=== PATIENT | female | born 1975 | race Two or more races ===

== ENCOUNTER 2024-05-03 03:13 | Emergency (ER) | payer MEDICAID, SELFPAY ==
[2024-05-03 03:37] VITALS: BP 143/85; PULSE 78; RESP 18; TEMP 36.9; O2SAT 100
[2024-05-03] MEDS: ONDANSETRON ODT 4 MG TABRAP PO (03:58)
--- NOTE | 2024-05-03 04:02 | EDNOTE_ITS ---
Nausea/Vomit./Diarrhea-RME/HPI General Chief complaint: General Adult/Misc Complain Stated complaint: NAUSEA,BODYACHES,CONGESTION Time Seen by Provider: 05/03/24 03:50 Arrival date/time: 05/03/24 03:13 48F with history of HTN, DM, and psych disorder presents to ED with several days of nasal congestion, body aches, and N/V that started after she took the ABX prescribed to her for her diverticulitis diagnosed here several days ago. Patient already swabbed herself for COVID and flu at home. Limitations: no limitations Related Data Home Medications ?Medication ?Instructions ?Recorded ?Confirmed quetiapine 50 mg tablet 50 mg PO HS 02/14/21 04/18/22 atorvastatin 10 mg tablet 10 mg PO QDAY 10/06/21 04/18/22 metformin 500 mg tablet 500 mg PO QDAY 10/06/21 04/18/22 atorvastatin 20 mg tablet 20 mg HS 06/21/23 06/21/23 bupropion HCl 150 mg 24 hr tablet, 150 mg PO DAILY 06/21/23 06/21/23 extended release hydroxyzine HCl 25 mg tablet 25 mg BID 06/21/23 06/21/23 lisinopril 10 mg tablet 10 mg DAILY 06/21/23 06/21/23 metformin 1,000 mg tablet 1,000 mg BID 06/21/23 06/21/23 norethindrone 1.5 mg-ethinyl 1 tab DAILY 06/21/23 06/21/23 estradiol 30 mcg(21)/iron 75 mg(7) tablet (Junel FE 1.5/30 (28)) paroxetine HCl 40 mg tablet 40 mg PO HS 06/21/23 06/21/23 quetiapine 50 mg tablet 50 mg HS 06/21/23 06/21/23 Previous Rx's ?Medication ?Instructions ?Recorded nirmatrelvir 300 mg (150 mg See Rx Instructions PO .COMPLEX 07/22/22 x2)-ritonavir 100 mg tablet,dose #30 tabs pack (Paxlovid) hydrocodone 5 mg-acetaminophen 325 1 tab PO Q8H PRN pain #7 tabs 06/21/23 mg tablet ciprofloxacin HCl 500 mg tablet 500 mg PO BID #20 tabs 01/25/24 (Cipro) ciprofloxacin HCl 500 mg tablet 500 mg PO Q12H #20 tabs 04/28/24 metronidazole 500 mg tablet 500 mg PO TID 10 days #30 tabs 04/28/24 ciprofloxacin HCl 500 mg tablet 500 mg PO BID #20 tabs 04/29/24 (Cipro) metronidazole 500 mg tablet 500 mg PO TID 10 days #30 tabs 04/29/24 ondansetron 4 mg disintegrating 4 mg PO Q8H PRN nausea and 05/03/24 tablet vomiting #30 tabs Allergies Allergy/AdvReac Type Severity Reaction Status Date / Time No Known Allergies Allergy Verified 04/28/24 02:03 Review of Systems Review of Systems Systems Reviewed: All systems reviewed, normal except as documented Constitutional Constitutional: Reports system reviewed and no additional complaints, except as documented, Reports as per HPI, Reports body ache(s), Denies fever(s) and Denies headache(s) ENT Ears, Nose, Mouth, and Throat: Reports as per HPI, Denies disequilibrium, Denies headache(s) and Reports nasal congestion Cardiovascular Cardiovascular: Reports system reviewed and no additional complaints, except as documented, Denies chest pain and Denies dyspnea Respiratory Respiratory: Reports system reviewed and no additional complaints, except as documented, Denies cough and Denies dyspnea Gastrointestinal Gastrointestinal: Reports system reviewed and no additional complaints, except as documented, Reports as per HPI, Denies abdominal pain, Reports nausea and Reports vomiting Neurologic Neurologic: Reports system reviewed and no additional complaints, except as documented, Denies confusion, Denies disequilibrium and Denies headache(s) Psychiatric Psychiatric: Denies confusion Past Medical History Past Medical History NEUROLOGIC: Negative Alzheimer's Disease or Seizures CARDIAC: Positive Cardiac Disorders, Hypercholesterolemia and Hypertension; Negative Congestive Heart Failure RESPIRATORY: Negative Chronic Obstructive Pulmonary Disease (COPD) or Asthma GASTROINTESTINAL: Positive Gall Bladder Disease; Negative Hepatitis GENITOURINARY: Positive Kidney Stones; Negative Renal Disease MUSCULOSKELETAL: Positive Musculoskeletal Disorders and Arthritis ENT: Positive Cataracts ENDOCRINE: Positive Diabetes Mellitus Type 2; Negative Diabetes Mellitus Type 1 HEMATOLOGIC: Negative Sickle Cell Disease PSYCHO/SOCIAL: Positive Depression and Anxiety OTHER HISTORY: Negative Falls or Cancer Surgical History SURGICAL: Positive Tubal Ligation and Section Social History SMOKING STATUS: Never smoker SUBSTANCE USE: does not use ED Exam General Limitations: Present no limitations General appearance: Present alert and in no apparent distress Head Head exam: Present atraumatic Eye Eye exam: Present normal appearance, PERRL and EOMI ENT ENT exam: Present normal exam, normal oropharynx and mucous membranes moist Neck Neck exam: Present normal inspection, full ROM and trachea midline Chest Chest inspection: Present normal inspection and symmetric chest wall rise Respiratory Respiratory exam: Present normal lung sounds bilaterally Cardiovascular Cardiovascular exam: Present regular rate, normal rhythm and normal heart sounds Abdominal Exam Abdominal exam: Present soft and normal bowel sounds Extremities Exam Extremities exam: Present normal inspection and full ROM Back Exam Back exam: Present normal inspection and full ROM Neurological Exam Neurological exam: Present alert, oriented X3 and CN II-XII intact Psychiatric Psychiatric exam: Present normal affect and normal mood Skin Skin exam: Present warm, dry, intact and normal color Course Quality Measures none Orders Category Date Time Status Ondansetron Odt [Zofran Odt] Med 05/03/24 03:51 Discontinued 4 mg PO X1 ONE Vital Signs Vital signs: Vital Signs Temperature 98.4 F 05/03/24 03:37 Pulse Rate 78 05/03/24 03:37 Respiratory Rate 18 05/03/24 03:37 Blood Pressure 143/85 H 05/03/24 03:37 Pulse Oximetry (%) 100 05/03/24 03:37 Oxygen Delivery Method Room Air 05/03/24 03:37 O2 at 100% on RA and WNLs Nausea/Vomiting/Diarrhea MDM Narrative MDM Narrative:: 48F with history of HTN, DM, and psych disorder presents to ED with several days of nasal congestion, body aches, and N/V that started after she took the ABX prescribed to her for her diverticulitis diagnosed here several days ago. Patient already swabbed herself for COVID and flu at home. Physical exam reveals nasal congestion, but otherwise clear ENT and lungs. No ab tenderness. Normal pupil response and EOM. No neck tenderness. ROM intact. Patient is afebrile, calm, and alert. Patient declines further diagnostics including repeat COVID/flu swab and just wants something for N/V, likely due to ABX. Patient states she will return if worse. Patient data External records reviewed:: [facility] previous records Clinical information provided by:: patient Social determinants that could affect healthcare access:: mental health Patient has the following chronic illnesses:: HTN, DM, and psyc How is presenting disease/condition affected by chronic disease/condition?: exacerbated by Evaluation data The following diagnostics were reviewed and interpreted by me:: other (specify) (none) Lab and/or radiology exams considered but not ordered:: not ordered Interpretation Summary: n/a Medications / Prescriptions Medications / Prescriptions considered but not ordered:: ordered Medication administrations:: Medication Administration History Discontinued Medications Ondansetron HCl (Ondansetron Odt 4 Mg Tabrap) 4 mg PO X1 ONE; Protocol Stop: 05/03/24 03:52 Last Admin: 05/03/24 03:58 Dose: 4 mg Documented By: RC above Consultations Consultation(s) initiated? (list below): No Diagnosis Nausea Differential Diagnosis: traveler's diarrhea, food poisoning, gastroenteritis, clostridium difficile infection, drug-induced nausea and vomiting, dehydration and other (drug adverse effect) Most likely diagnosis given after review of the tests above:: drug adverse effect Admission Indicated Admission indicated?: not indicated Admission Request Was there a request for admission?: No Disposition Plan Disposition Plan: Discharge Discharge Attestation Discharge Attestation: The patient and all family members were given an opportunity to ask questions and understood the discharge instructions. Discharge instructions specifically effects, indications for sooner follow up or return to the emergency department, and the expected course of current diagnosis. Patient condition: Stable Discharge Plan Plan Patient Disposition: HOME (Self Care) Disposition Comment: Stable Prescriptions/Referrals Prescriptions/Med Rec: New ondansetron 4 mg tablet,disintegrating 4 mg PO Q8H PRN (Reason: nausea and vomiting) Qty: 30 0RF No Action quetiapine 50 mg Tablet 50 mg PO HS metformin 500 mg tablet 500 mg PO QDAY atorvastatin 10 mg tablet 10 mg PO QDAY Paxlovid 300 mg (150 mg x 2)-100 mg tablets,dose pack See Rx Instructions .ROUTE .COMPLEX Qty: 30 0RF Rx Instructions: take TWO 150 mg tablets of nirmatrelvir with ONE 100 mg tablet of ritonavir twice daily for 5 days atorvastatin 20 mg tablet 20 mg HS metformin 1,000 mg tablet 1,000 mg BID lisinopril 10 mg tablet 10 mg DAILY hydroxyzine HCl 25 mg tablet 25 mg BID paroxetine HCl 40 mg tablet 40 mg PO HS bupropion HCl 150 mg tablet extended release 24 hr 150 mg PO DAILY quetiapine 50 mg tablet 50 mg HS norethindrone-e.estradiol-iron [Junel FE 1.5/30 (28)] 1.5 mg-30 mcg (21)/75 mg (7) tablet 1 tab DAILY hydrocodone-acetaminophen 5-325 mg tablet 1 tab PO Q8H MDD 3 daily PRN (Reason: pain) Qty: 7 0RF ciprofloxacin HCl [Cipro] 500 mg tablet 500 mg PO BID Qty: 20 0RF metronidazole 500 mg tablet 500 mg PO TID 10 Days Qty: 30 0RF ciprofloxacin HCl 500 mg tablet 500 mg PO Q12H Qty: 20 0RF ciprofloxacin HCl [Cipro] 500 mg tablet 500 mg PO BID Qty: 20 0RF metronidazole 500 mg tablet 500 mg PO TID 10 Days Qty: 30 0RF Problem List Clinical Impression: Adverse drug effect Patient/Caregiver Discharge Instructions Additional Instructions: Please follow-up with PCP within 24-48 hours and return immediately if symptoms worsen. Stay hydrated. Print Language: Faroese Stand Alone Forms: Patient Portal Info Letter FRITZ/VIVIANA Supervising Physician FRITZ/VIVIANA Supervising Physician: Dr. Henriquez
== END 2024-05-03 04:03 | disposition home or self-care (01) ==
LOC: SERX 05:35
PROVIDERS: Emergency Provider Emergency Medicine; PCP Family Medicine
DX: R11.2 Nausea with vomiting, unspecified (principal); T36.8X5A Adverse effect of other systemic antibiotics, initial encounter; R09.81 Nasal congestion
CPT/HCPCS: 99283; Q0162

== ENCOUNTER 2024-08-23 23:36 | Emergency (ER) | payer MEDICAID, SELFPAY ==
[2024-08-23 23:54] VITALS: PULSE 98; RESP 18; O2SAT 98; BMI 31.1
[2024-08-24 00:03] VITALS: BP 127/76; PULSE 72; RESP 18; TEMP 36.8; O2SAT 98
--- NOTE | 2024-08-24 01:46 | PC.NURSE ---
Pt walked out of the ER and got into a car, presumed eloped
== END 2024-08-24 02:19 | disposition left against medical advice (07) ==
PROVIDERS: Emergency Provider Emergency Medicine; PCP Family Medicine
DX: Z53.21 Procedure and treatment not carried out due to patient leaving prior to being seen by health care provider (principal)
CPT/HCPCS: 80053; 81001; 85025; 99281

== ENCOUNTER 2024-10-01 17:40 | Emergency (ER) | payer MEDICAID, SELFPAY ==
[2024-10-01 17:41] VITALS: PULSE 86; O2SAT 99; BMI 31.1
[2024-10-01 17:49] VITALS: BP 152/92; PULSE 101; RESP 20; TEMP 36.8; O2SAT 98
--- NOTE | 2024-10-01 18:13 | EKG_ITS ---
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
--- NOTE | 2024-10-01 18:27 | XR_ITS ---
Examination: CT brain head without contrast. 2-D sagittal coronal reconstructions Date and time of exam:October 01, 2024 1838 hours Indications: Patient fell today with injury to the head, head pain CTDI: vol (mGy):48.1 DLP: (mGycm):961 Technique: Multiple CT axial sections of the brain have been obtained, 5 mm slice thickness. Contrast has not been administered. 2-D sagittal, coronal reconstructions have been obtained Low dose protocols were performed. One or more of the following dose reduction techniques were used; automated exposure control, adjustment of the mA and/or KV according to patient size, use of iterative reconstruction technique. Findings: No significant ventricular enlargement. Small cerebral calcifications Intra-axial or extra-axial hemorrhage density is not seen. No mass effect or midline shift Basal cisterns are not remarkable. Fourth ventricle is midline. Cranial vault intact. Impression: Negative for acute hemorrhage, mass effect or midline shift
--- NOTE | 2024-10-01 18:27 | XR_ITS ---
Examination: CT cervical spine without contrast 2-D sagittal reconstructions 2-D coronal reconstructions 3-D reconstructions. Exam date and time:October 01, 2024 at 1838 hrs. Indications: Patient fell today with injury to the neck, neck pain CTDI:vol (mGy) 8.72 DLP: (mGycm) 192 Technique: Multiple 2 mm axial sections of the cervical spine have been obtained. The coronal and sagittal reconstructions have been obtained. 3-D reconstructions have been obtained. Low dose protocols were performed. One or more of the following dose reduction techniques were used; automated exposure control, adjustment of the mA and/or KV according to patient size, use of iterative reconstruction technique. Findings: Axial sections demonstrate intact base of the skull. C1 exhibit satisfactory relationship to the odontoid. No acute cervical vertebral body fracture seen. Alignment posterior spinous processes satisfactory. Impression: No acute cervical fracture.
--- NOTE | 2024-10-01 18:28 | PD.EDANX ---
ED Anxiety RME/HPI General Chief Complaint: Anxiety Stated Complaint: SOB 2ND ANXIETY ATTACK Time Seen by Provider: 10/01/24 18:27 Arrival date/time: 10/01/24 17:40 49F with history of DM and anxiety (on Paxil) presents to ED with panic/attack anxiety after her landlord came over today, did an inspection, and told her some mean things. Patient denies SI/HI. Patient states she fainted and hit the back of her head afterwards. Limitations: no limitations Related Data Home Medications ?Medication ?Instructions ?Recorded ?Confirmed quetiapine 50 mg tablet 50 mg PO HS 02/14/21 04/18/22 atorvastatin 10 mg tablet 10 mg PO QDAY 10/06/21 04/18/22 metformin 500 mg tablet 500 mg PO QDAY 10/06/21 04/18/22 atorvastatin 20 mg tablet 20 mg HS 06/21/23 06/21/23 bupropion HCl 150 mg 24 hr tablet, 150 mg PO DAILY 06/21/23 06/21/23 extended release hydroxyzine HCl 25 mg tablet 25 mg BID 06/21/23 06/21/23 lisinopril 10 mg tablet 10 mg DAILY 06/21/23 06/21/23 metformin 1,000 mg tablet 1,000 mg BID 06/21/23 06/21/23 norethindrone 1.5 mg-ethinyl 1 tab DAILY 06/21/23 06/21/23 estradiol 30 mcg(21)/iron 75 mg(7) tablet (Junel FE 1.5/30 (28)) paroxetine HCl 40 mg tablet 40 mg PO HS 06/21/23 06/21/23 quetiapine 50 mg tablet 50 mg HS 06/21/23 06/21/23 Previous Rx's ?Medication ?Instructions ?Recorded nirmatrelvir 300 mg (150 mg See Rx Instructions PO .COMPLEX 07/22/22 x2)-ritonavir 100 mg tablet,dose #30 tabs pack (Paxlovid) hydrocodone 5 mg-acetaminophen 325 1 tab PO Q8H PRN pain #7 tabs 06/21/23 mg tablet ciprofloxacin HCl 500 mg tablet 500 mg PO BID #20 tabs 01/25/24 (Cipro) ciprofloxacin HCl 500 mg tablet 500 mg PO Q12H #20 tabs 04/28/24 ciprofloxacin HCl 500 mg tablet 500 mg PO BID #20 tabs 04/29/24 (Cipro) ondansetron 4 mg disintegrating 4 mg PO Q8H PRN nausea and 05/03/24 tablet vomiting #30 tabs Allergies Allergy/AdvReac Type Severity Reaction Status Date / Time No Known Allergies Allergy Verified 10/01/24 17:43 Review of Systems Review of Systems Systems Reviewed: All systems reviewed, normal except as documented Constitutional Constitutional: Reports system reviewed and no additional complaints, except as documented, Reports as per HPI, Denies fever(s) and Reports headache(s) (pain) ENT Ears, Nose, Mouth, and Throat: Denies disequilibrium, Reports headache(s) (pain) and Reports neck pain Cardiovascular Cardiovascular: Reports system reviewed and no additional complaints, except as documented, Denies chest pain and Denies dyspnea Respiratory Respiratory: Reports system reviewed and no additional complaints, except as documented, Denies cough and Denies dyspnea Gastrointestinal Gastrointestinal: Reports system reviewed and no additional complaints, except as documented, Denies abdominal pain, Denies nausea and Denies vomiting Musculoskeletal Musculoskeletal: Reports as per HPI and Reports neck pain Neurologic Neurologic: Reports system reviewed and no additional complaints, except as documented, Denies confusion, Denies disequilibrium and Reports headache(s) (pain) Psychiatric Psychiatric: Denies confusion Past Medical History Past Medical History NEUROLOGIC: Negative Alzheimer's Disease or Seizures CARDIAC: Positive Cardiac Disorders, Hypercholesterolemia and Hypertension; Negative Congestive Heart Failure RESPIRATORY: Negative Chronic Obstructive Pulmonary Disease (COPD) or Asthma GASTROINTESTINAL: Positive Gall Bladder Disease; Negative Hepatitis GENITOURINARY: Positive Kidney Stones; Negative Renal Disease MUSCULOSKELETAL: Positive Musculoskeletal Disorders and Arthritis ENT: Positive Cataracts ENDOCRINE: Positive Diabetes Mellitus Type 2; Negative Diabetes Mellitus Type 1 HEMATOLOGIC: Negative Sickle Cell Disease PSYCHO/SOCIAL: Positive Depression and Anxiety OTHER HISTORY: Negative Falls or Cancer Surgical History SURGICAL: Positive Tubal Ligation and Section Social History SMOKING STATUS: Never smoker SUBSTANCE USE: does not use ED Exam General Limitations: Present no limitations General appearance: Present alert and anxious Head Head exam: Present atraumatic Eye Eye exam: Present normal appearance, PERRL and EOMI ENT ENT exam: Present normal exam, normal oropharynx and mucous membranes moist Neck Neck exam: Present normal inspection, full ROM and trachea midline Chest Chest inspection: Present normal inspection and symmetric chest wall rise Respiratory Respiratory exam: Present normal lung sounds bilaterally Cardiovascular Cardiovascular exam: Present regular rate, normal rhythm and normal heart sounds Abdominal Exam Abdominal exam: Present soft and normal bowel sounds Extremities Exam Extremities exam: Present normal inspection and full ROM Back Exam Back exam: Present normal inspection and full ROM Neurological Exam Neurological exam: Present alert, oriented X3 and CN II-XII intact Psychiatric Psychiatric exam: Present normal affect and normal mood Skin Skin exam: Present warm, dry, intact and normal color Course Quality Measures none Orders Category Date Time Status EKG (ED ONLY) *Do not use* NOW Care 10/01/24 18:[address] cervical spine wo con Stat Exams 10/01/24 18:[address] head/brain wo con Stat Exams 10/01/24 18:27 Ordered EKG (ED Only) Stat Exams 10/01/24 18:13 Draft Diazepam [Valium] Med 10/01/24 18:27 Once 10 mg PO X1 ONE Vital Signs Vital signs: Vital Signs Temperature 98.2 F 10/01/24 17:49 Pulse Rate 101 H 10/01/24 17:49 Respiratory Rate 20 10/01/24 17:49 Blood Pressure 152/92 H 10/01/24 17:49 Pulse Oximetry (%) 98 10/01/24 17:49 Oxygen Delivery Method Room Air 10/01/24 17:49 Anxiety MDM Narrative MDM Narrative: 49F with history of DM and anxiety (on Paxil) presents to ED with panic/attack anxiety after her landlord came over today, did an inspection, and told her some mean things. Patient denies SI/HI. Patient states she fainted and hit the back of her head afterwards. Physical exam reveals some pain with neck ROM, but it is intact. Normal EOM. Patient is afebrile, alert, but anxious/crying. EKG is NSR. CT normal. Valium relieved symptoms. Patient data External records reviewed:: [facility] previous records Clinical information provided by:: patient Social determinants that could affect healthcare access:: mental health Patient has the following chronic illnesses:: DM and anxiety How is presenting disease/condition affected by chronic disease/condition?: exacerbated by Evaluation data The following diagnostics were reviewed and interpreted by me:: radiology exam(s) and EKG tracing(s) Lab and/or radiology exams considered but not ordered:: ordered Interpretation Summary: above Medications / Prescriptions Medications or Prescriptions considered but not ordered:: ordered Medication administrations:: Medication Administration History Diazepam (Diazepam 5 Mg Tablet) 10 mg PO X1 ONE Stop: 10/01/24 18:28 Consultations Consultation(s) initiated? (list below): No Diagnosis Differential diagnosis anxiety: hyperventilation, panic disorder, acute anxiety and other (CHI and stress reaction) Most likely diagnosis given after review of the tests above:: CHI and stress reaction Admission Indicated Admission indicated?: not indicated Admission Request Was there a request for admission?: No Disposition Plan Disposition Plan: Discharge Discharge Attestation Discharge Attestation: The patient and all family members were given an opportunity to ask questions and understood the discharge instructions. Discharge instructions specifically effects, indications for sooner follow up or return to the emergency department, and the expected course of current diagnosis. Patient condition: Stable Discharge Plan Plan Patient Disposition: HOME (Self Care) Disposition Comment: Stable Prescriptions/Referrals Prescriptions/Med Rec: No Action quetiapine 50 mg Tablet 50 mg PO HS metformin 500 mg tablet 500 mg PO QDAY atorvastatin 10 mg tablet 10 mg PO QDAY Paxlovid 300 mg (150 mg x 2)-100 mg tablets,dose pack See Rx Instructions .ROUTE .COMPLEX Qty: 30 0RF Rx Instructions: take TWO 150 mg tablets of nirmatrelvir with ONE 100 mg tablet of ritonavir twice daily for 5 days atorvastatin 20 mg tablet 20 mg HS metformin 1,000 mg tablet 1,000 mg BID lisinopril 10 mg tablet 10 mg DAILY hydroxyzine HCl 25 mg tablet 25 mg BID paroxetine HCl 40 mg tablet 40 mg PO HS bupropion HCl 150 mg tablet extended release 24 hr 150 mg PO DAILY quetiapine 50 mg tablet 50 mg HS norethindrone-e.estradiol-iron [June FE 1.5/30 (28)] 1.5 mg-30 mcg (21)/75 mg (7) tablet 1 tab DAILY hydrocodone-acetaminophen 5-325 mg tablet 1 tab PO Q8H MDD 3 daily PRN (Reason: pain) Qty: 7 0RF ciprofloxacin HCl [Cipro] 500 mg tablet 500 mg PO BID Qty: 20 0RF ciprofloxacin HCl 500 mg tablet 500 mg PO Q12H Qty: 20 0RF ciprofloxacin HCl [Cipro] 500 mg tablet 500 mg PO BID Qty: 20 0RF ondansetron 4 mg tablet,disintegrating 4 mg PO Q8H PRN (Reason: nausea and vomiting) Qty: 30 0RF Referrals: Brayden Arteaga MD [Primary Care Provider] - In 1 week Problem List Clinical Impression: Anxiety in acute stress reaction, CHI (closed head injury) Patient/Caregiver Discharge Instructions Education Materials: ED Anxiety Reaction Additional Instructions: Please follow-up with PCP within 24-48 hours and return immediately if symptoms worsen. 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 Flores
[2024-10-01] MEDS: DIAZEPAM 5 MG TABLET 10 MG PO (18:35)
[2024-10-01 20:30] VITALS: BP 136/86; PULSE 80; RESP 18; TEMP 36.7; O2SAT 98
== END 2024-10-01 20:34 | disposition home or self-care (01) ==
PROVIDERS: Emergency Provider Emergency Medicine; PCP Family Medicine
DX: F41.1 Generalized anxiety disorder (principal); F43.0 Acute stress reaction; M54.2 Cervicalgia; S09.90XA Unspecified injury of head, initial encounter; F32.A Depression, unspecified; E11.9 Type 2 diabetes mellitus without complications; E78.00 Pure hypercholesterolemia, unspecified; I10 Essential (primary) hypertension; W19.XXXA Unspecified fall, initial encounter; Y92.009 Unspecified place in unspecified non-institutional (private) residence as the place of occurrence of the external cause
CPT/HCPCS: 70450; 72125; 93005; 99284; A9270

== ENCOUNTER 2024-11-29 23:53 | Emergency (ER) | payer MEDICAID, SELFPAY ==
[2024-11-30 00:29] VITALS: BP 146/90; PULSE 61; RESP 20; TEMP 36.7; O2SAT 100
--- NOTE | 2024-11-30 01:53 | PD.EDRME ---
Rapid Medical Screening Exam RME Arrival date/time: 11/29/24 23:53 Chief Complaint: Nausea/Vomiting/Diarrhea Time Seen by Provider: 11/30/24 00:34 Vital signs: Vital Signs Temperature 98.0 F 11/30/24 00:29 Pulse Rate 61 11/30/24 00:29 Respiratory Rate 20 11/30/24 00:29 Blood Pressure 146/90 H 11/30/24 00:29 Pulse Oximetry (%) 100 11/30/24 00:29 Oxygen Delivery Method Room Air 11/30/24 00:29 Vital signs reviewed by provider: Yes RME Narrative: 49-year-old female
--- NOTE | 2024-11-30 02:00 | PD.EDNV ---
Nausea/Vomit./Diarrhea-RME/HPI General Chief complaint: Nausea/Vomiting/Diarrhea Stated complaint: HEADACHE, DIZZY, NAUSEA, WEAK Time Seen by Provider: 11/30/24 00:34 Arrival date/time: 11/29/24 23:53 RME / HPI RME / HPI Narrative: 49-year-old female This section includes all my notes and documentations, including HPI, PE, and ED course. Tristen Flores MD HPI: ROS: All negative except as documented in HPI. Physical Exam: General: Alert and oriented. Eyes: Conjunctivae and lids clear. ENT: No nasal congestion. Neck: Supple. Lungs: No respiratory distress. Skin: Warm and dry. Neuro: Alert and oriented X 3. Physical Exam: General: Alert and oriented. No acute distress when remaining still. Eyes: Conjunctivae and lids clear. ENT: No nasal congestion. Neck: Supple. Heart: RRR. Lungs: No respiratory distress. Good air movement. No rhonchi, wheezing, rales. Abdomen: Soft and nontender. Normal bowel sounds. No distension. No rebound or guarding. Back: No CVA tenderness. Skin: Warm and dry. Neuro: Alert and oriented X 3. Physical Exam: General: Alert and oriented. No acute distress. Eyes: Conjunctivae and lids clear. EOMI. PERRL. ENT: No nasal congestion. Pharynx normal. Tympanic membrane normal bilaterally. Neck: Supple. No lymphadenopathy. No JVD. Heart: RRR. Lungs: No respiratory distress. Good air movement. No rhonchi, wheezing, rales. Chest: No tenderness. Abdomen: Soft and nontender. Normal bowel sounds. No distension. No rebound or guarding. Back: No CVA tenderness. Legs: No clubbing, cyanosis, edema. Skin: Warm and dry. Neuro: Alert and oriented X 3. Cranial Nerves II-XII grossly intact. No peripheral motor deficits. Musculoskeletal: All major joints and bones are not tender with no limited ROM. I reviewed EMS and [facility] notes. I reviewed all diagnostic test results: My interpretation of the EKG is: My interpretation of the chest x-ray is: My review of the CT report is: Blood tests and urine tests Covid/Influenza At this point, diagnoses include: Treatment here included: Critical care Significant improvement Recommended Not yet done: I discussed the case with our hospitalist. About the presentation and exam and diagnostics and treatments here. And need of further care in the hospital. Will accept the patient. Not yet done: Based on my best medical judgment, made decision no further evaluation or treatment indicated at this time. Patient understands and agrees to the discharge instructions customized and printed, see below. Tristen Flores MD Related Data Home Medications ?Medication ?Instructions ?Recorded ?Confirmed quetiapine 50 mg tablet 50 mg PO HS 02/14/21 04/18/22 atorvastatin 10 mg tablet 10 mg PO QDAY 10/06/21 04/18/22 metformin 500 mg tablet 500 mg PO QDAY 10/06/21 04/18/22 atorvastatin 20 mg tablet 20 mg HS 06/21/23 06/21/23 bupropion HCl 150 mg 24 hr tablet, 150 mg PO DAILY 06/21/23 06/21/23 extended release hydroxyzine HCl 25 mg tablet 25 mg BID 06/21/23 06/21/23 lisinopril 10 mg tablet 10 mg DAILY 06/21/23 06/21/23 metformin 1,000 mg tablet 1,000 mg BID 06/21/23 06/21/23 norethindrone 1.5 mg-ethinyl 1 tab DAILY 06/21/23 06/21/23 estradiol 30 mcg(21)/iron 75 mg(7) tablet (Junel FE 1.5/30 ()) paroxetine HCl 40 mg tablet 40 mg PO HS 06/21/23 06/21/23 quetiapine 50 mg tablet 50 mg HS 06/21/23 06/21/23 Previous Rx's ?Medication ?Instructions ?Recorded nirmatrelvir 300 mg (150 mg See Rx Instructions PO .COMPLEX 07/22/22 x2)-ritonavir 100 mg tablet,dose #30 tabs pack (Paxlovid) hydrocodone 5 mg-acetaminophen 325 1 tab PO Q8H PRN pain #7 tabs 06/21/23 mg tablet ciprofloxacin HCl 500 mg tablet 500 mg PO BID #20 tabs 01/25/24 (Cipro) ciprofloxacin HCl 500 mg tablet 500 mg PO Q12H #20 tabs 04/28/24 ciprofloxacin HCl 500 mg tablet 500 mg PO BID #20 tabs 04/29/24 (Cipro) ondansetron 4 mg disintegrating 4 mg PO Q8H PRN nausea and 05/03/24 tablet vomiting #30 tabs Allergies Allergy/AdvReac Type Severity Reaction Status Date / Time No Known Allergies Allergy Verified 10/01/24 17:43 Course Vital Signs Vital signs: Vital Signs Temperature 98.0 F 11/30/24 00:29 Pulse Rate 61 11/30/24 00:29 Respiratory Rate 20 11/30/24 00:29 Blood Pressure 146/90 H 11/30/24 00:29 Pulse Oximetry (%) 100 11/30/24 00:29 Oxygen Delivery Method Room Air 11/30/24 00:29 Discharge Plan Prescriptions/Referrals Prescriptions/Med Rec: No Action quetiapine 50 mg Tablet 50 mg PO HS metformin 500 mg tablet 500 mg PO QDAY atorvastatin 10 mg tablet 10 mg PO QDAY Paxlovid 300 mg (150 mg x 2)-100 mg tablets,dose pack See Rx Instructions .ROUTE .COMPLEX Qty: 30 0RF Rx Instructions: take TWO 150 mg tablets of nirmatrelvir with ONE 100 mg tablet of ritonavir twice daily for 5 days atorvastatin 20 mg tablet 20 mg HS metformin 1,000 mg tablet 1,000 mg BID lisinopril 10 mg tablet 10 mg DAILY hydroxyzine HCl 25 mg tablet 25 mg BID paroxetine HCl 40 mg tablet 40 mg PO HS bupropion HCl 150 mg tablet extended release 24 hr 150 mg PO DAILY quetiapine 50 mg tablet 50 mg HS norethindrone-e.estradiol-iron [.5/30 ()] 1.5 mg-30 mcg (21)/75 mg (7) tablet 1 tab DAILY hydrocodone-acetaminophen 5-325 mg tablet 1 tab PO Q8H MDD 3 daily PRN (Reason: pain) Qty: 7 0RF ciprofloxacin HCl [Cipro] 500 mg tablet 500 mg PO BID Qty: 20 0RF ciprofloxacin HCl 500 mg tablet 500 mg PO Q12H Qty: 20 0RF ciprofloxacin HCl [Cipro] 500 mg tablet 500 mg PO BID Qty: 20 0RF ondansetron 4 mg tablet,disintegrating 4 mg PO Q8H PRN (Reason: nausea and vomiting) Qty: 30 0RF Patient/Caregiver Discharge Instructions Print Language: Samoan
--- NOTE | 2024-11-30 02:01 | PD.EDABDPN ---
ED Abdominal Pain RME/HPI General Chief Complaint: Nausea/Vomiting/Diarrhea Stated complaint: HEADACHE, DIZZY, NAUSEA, WEAK Time seen by provider: 11/30/24 00:34 Arrival date/time: 11/29/24 23:53 RME / HPI RME / HPI narrative: 49-year-old female This section includes all my notes and documentations, including HPI, PE, and ED course. Tristen Flores MD HPI: 49 y/o female with Hx of Hypercholesterolemia, Hypertension, Gall Bladder Disease, Kidney Stones, and Diabetes Mellitus Type 2 presents with a couple of days of abdominal pain and severe headache. No other complaints. ROS: All negative except as documented in HPI. Physical Exam: General:? Alert and oriented.? Appears uncomfortable. Eyes:? Conjunctivae and lids clear.? EOMI.? PERRL. ENT:? No nasal congestion.? Neck:? Supple.? Heart:? RRR.? Lungs:? No respiratory distress.? Good air movement.? No rhonchi, wheezing, rales.?? Abdomen:? Soft with diffuse tenderness.? Normal bowel sounds.? No distension.? No rebound or guarding.?? Back:? No CVA tenderness.?? Skin:? Warm and dry.?? Neuro:? Alert and oriented X 3.? Cranial Nerves II-XII grossly intact.? No peripheral motor deficits. I reviewed all diagnostic test results: My review of the Head/Brain CT report is: NAD. My review of the Chest/Abdomen/Pelvis CT report is: Cholelithiasis. Blood tests and urine tests unremarkable. Covid/Influenza: Negative. At this point, diagnoses include: Cholelithiasis. Treatment here included: IV fluid, Toradol, Morphine, Zofran. Significant improvement noted. Recommend MRI outpatient workup. Based on my best medical judgment, made decision no further evaluation or treatment indicated at this time.? Patient understands and agrees to the discharge instructions customized and printed, see below. Discharge Instructions from Dr. Flores: 1. After evaluation, your symptoms are due to gallstone(s).? You need gallbladder to help digest fatty foods. There is no stroke or brain tumor causing your headache. 2. So to prevent future attacks, avoid all fatty and oily and greasy and buttery and dairy foods.? This usually means take out and fast food restaurants. 3. Zofran for nausea/vomiting.? Tylenol with codeine for severe pain.? Clear liquid diet for 24 hours then advance diet slowly as tolerated. 4. See a private doctor on 12/01/2024 for recheck and further care. Ask to review all test results and official radiology reports, to make sure you receive all necessary follow-ups and monitoring. Ask for help seeing a general surgeon to discuss elective surgery. 5. Seek immediate medical care with intolerable pain, fever, or with any concerns. Tristen Flores MD Related Data Home Medications ?Medication ?Instructions ?Recorded ?Confirmed quetiapine 50 mg tablet 50 mg PO HS 02/14/21 04/18/22 atorvastatin 10 mg tablet 10 mg PO QDAY 10/06/21 04/18/22 metformin 500 mg tablet 500 mg PO QDAY 10/06/21 04/18/22 atorvastatin 20 mg tablet 20 mg HS 06/21/23 06/21/23 bupropion HCl 150 mg 24 hr tablet, 150 mg PO DAILY 06/21/23 06/21/23 extended release hydroxyzine HCl 25 mg tablet 25 mg BID 06/21/23 06/21/23 lisinopril 10 mg tablet 10 mg DAILY 06/21/23 06/21/23 metformin 1,000 mg tablet 1,000 mg BID 06/21/23 06/21/23 norethindrone 1.5 mg-ethinyl 1 tab DAILY 06/21/23 06/21/23 estradiol 30 mcg()/iron 75 mg(7) tablet (Junel FE 1.5/30 ()) paroxetine HCl 40 mg tablet 40 mg PO HS 06/21/23 06/21/23 quetiapine 50 mg tablet 50 mg HS 06/21/23 06/21/23 Previous Rx's ?Medication ?Instructions ?Recorded nirmatrelvir 300 mg (150 mg See Rx Instructions PO .COMPLEX 07/22/22 x2)-ritonavir 100 mg tablet,dose #30 tabs pack (Paxlovid) hydrocodone 5 mg-acetaminophen 325 1 tab PO Q8H PRN pain #7 tabs 06/21/23 mg tablet ciprofloxacin HCl 500 mg tablet 500 mg PO BID #20 tabs 01/25/24 (Cipro) ciprofloxacin HCl 500 mg tablet 500 mg PO Q12H #20 tabs 04/28/24 ciprofloxacin HCl 500 mg tablet 500 mg PO BID #20 tabs 04/29/24 (Cipro) ondansetron 4 mg disintegrating 4 mg PO Q8H PRN nausea and 05/03/24 tablet vomiting #30 tabs acetaminophen 300 mg-codeine 30 mg 2 tab PO Q8H PRN pain #20 tabs 11/30/24 tablet ondansetron 4 mg disintegrating 4 mg PO TID PRN nausea and 11/30/24 tablet vomiting 30 days #10 tabs Allergies Allergy/AdvReac Type Severity Reaction Status Date / Time No Known Allergies Allergy Verified 10/01/24 17:43 Review of Systems Review of Systems Systems Reviewed: All systems reviewed, normal except as documented Past Medical History Past Medical History CARDIAC: Positive Cardiac Disorders, Hypercholesterolemia and Hypertension GASTROINTESTINAL: Positive Gall Bladder Disease GENITOURINARY: Positive Kidney Stones MUSCULOSKELETAL: Positive Musculoskeletal Disorders and Arthritis ENDOCRINE: Positive Diabetes Mellitus Type 2 PSYCHO/SOCIAL: Positive Depression and Anxiety Surgical History SURGICAL: Positive Tubal Ligation and Section ED Exam Narrative Physical exam: Refer to HPI above Course Quality Measures none Orders Category Date Time Status Bedside COVID-19 Antigen Test NOW Care 11/30/24 02:09 Active Bedside Influenza A&B Antigen Test NOW Care 11/30/24 02:09 Completed Saline [Insert IV] NOW Care 11/30/24 02:09 Active Straight [In and Out Catheter] X1 Care 11/30/24 02:[address] chest abdomen pelvis wo Stat Exams 11/30/24 02:[address] head/brain wo con Stat Exams 11/30/24 02:10 Taken US gall bladder Stat Exams 11/30/24 02:10 Ordered Amylase Stat Lab 11/30/24 02:47 Completed Bilirubin,Direct Stat Lab 11/30/24 02:47 Completed CBC Stat Lab 11/30/24 02:47 Completed CMP [Comprehensive Metabolic Panel] Stat Lab 11/30/24 02:47 Completed Free T4 (Free Thyroxine) Stat Lab 11/30/24 02:47 Completed HCG Qualitative,Urine Stat Lab 11/30/24 03:50 Completed HCG,Qualitative Serum Stat Lab 11/30/24 02:47 Completed Lipase Stat Lab 11/30/24 02:47 Completed Magnesium Stat Lab 11/30/24 02:47 Completed TSH [Thyroid Stimulating Hormone] Stat Lab 11/30/24 02:47 Completed UA, C/S IF [Urinalysis, C/S if Indicated] Stat Lab 11/30/24 03:50 Completed Ketorolac Inj [Toradol Inj] Med 11/30/24 02:09 Discontinued 30 mg IVP X1 ONE Morphine Inj Med 11/30/24 02:09 Discontinued 4 mg IVP X1 ONE Ondansetron Inj [Zofran Inj] Med 11/30/24 02:09 Discontinued 4 mg IVP X1 ONE Sodium Chloride 0.9% 1000 ml [Ns] 1,000 ml Med 11/30/24 02:09 Discontinued IV 999 mls/hr Vital Signs Vital signs: Vital Signs Temperature 98.0 F 11/30/24 00:29 Pulse Rate 61 11/30/24 00:29 Respiratory Rate 20 11/30/24 00:29 Blood Pressure 146/90 H 11/30/24 00:29 Pulse Oximetry (%) 100 11/30/24 00:29 Oxygen Delivery Method Room Air 11/30/24 00:29 Abdominal Pain MDM MDM Narrative MDM Narrative:: Scribe Attestation: Kalyn Ndiaye, am scribing for and in the presence of Dr. Flores. Provider Notation: Although this document has been carefully reviewed, there may still be some phonetic and other typographical errors.? These errors are purely grammatical due to imperfections in the software program and should not be construed in any way to? compromise the substance of the patient's medical care during this visit. 49 y/o female with Hx of Hypercholesterolemia, Hypertension, Gall Bladder Disease, Kidney Stones, and Diabetes Mellitus Type 2 presents with a couple of days of diffused abdominal pain and severe headache. No other complaints. Patient data External records reviewed:: [facility] previous records (Reviewed prior ED records from 10/01/24. Patient was seen for Anxiety in acute stress reaction.) Clinical information provided by:: patient Social determinants that could affect healthcare access:: none Patient has the following chronic illnesses:: Hypercholesterolemia, Hypertension, Gall Bladder Disease, Kidney Stones, Arthritis, Diabetes Mellitus Type 2, Depression and Anxiety How is presenting disease/condition affected by chronic disease/condition?: exacerbated by Evaluation data The following diagnostics were reviewed and interpreted by me:: lab results and radiology exam(s) Lab and/or radiology exams considered but not ordered:: None Interpretation Summary: I reviewed all diagnostic test results: My review of the Head/Brain CT report is: NAD. My review of the Chest/Abdomen/Pelvis CT report is: Cholelithiasis. Blood tests and urine tests unremarkable. Covid/Influenza: Negative. Medications / Prescriptions Medications or Prescriptions considered but not ordered:: None Medication administrations:: Medication Administration History Discontinued Medications Sodium Chloride (Ns) 1,000 mls @ 999 mls/hr IV .Q1H1M ONE Stop: 11/30/24 03:09 Last Infusion: 11/30/24 04:10 Dose: Infused Documented By: Admin: 11/30/24 02:51 Dose: 999 mls/hr Documented By: USMAN Ketorolac Tromethamine (Ketorolac Inj 30 Mg/Ml Vial) 30 mg IVP X1 ONE Stop: 11/30/24 02:10 Last Admin: 11/30/24 02:53 Dose: 30 mg Documented By: USMAN Morphine Sulfate (Morphine Sulf Inj 10 Mg/Ml Vial) 4 mg IVP X1 ONE Stop: 11/30/24 02:10 Last Admin: 11/30/24 02:54 Dose: 4 mg Documented By: USMAN Ondansetron HCl (Ondansetron Inj 2 Mg/Ml Inj 2 Ml) 4 mg IVP X1 ONE; Protocol Stop: 11/30/24 02:10 Last Admin: 11/30/24 02:52 Dose: 4 mg Documented By: USMAN IV fluid, Toradol, Morphine, Zofran. Consultations Consultation(s) initiated? (list below): No Diagnosis Differential diagnosis abdominal pain: abdominal pain, acute appendicitis, calculus of kidney, constipation, diverticulitis, gastroenteritis, pancreatitis and small bowel obstruction Most likely diagnosis given after review of the tests above:: Biliary colic Admission Indicated Admission indicated?: not indicated Explain why admission is indicated or not indicated:: With significant improvement, there was no indication for admission. Admission Request Was there a request for admission?: No Disposition Plan Disposition Plan: Discharge Discharge Attestation Discharge Attestation: The patient and all family members were given an opportunity to ask questions and understood the discharge instructions. Discharge instructions specifically effects, indications for sooner follow up or return to the emergency department, and the expected course of current diagnosis. Patient condition: Stable Discharge Plan Plan Patient Disposition: HOME (Self Care) Prescriptions/Referrals Prescriptions/Med Rec: New acetaminophen-codeine 300-30 mg tablet 2 tab PO Q8H MDD 6 PRN (Reason: pain) Qty: 20 0RF ondansetron 4 mg tablet,disintegrating 4 mg PO TID PRN (Reason: nausea and vomiting) 30 Days Qty: 10 0RF No Action quetiapine 50 mg Tablet 50 mg PO HS metformin 500 mg tablet 500 mg PO QDAY atorvastatin 10 mg tablet 10 mg PO QDAY Paxlovid 300 mg (150 mg x 2)-100 mg tablets,dose pack See Rx Instructions .ROUTE .COMPLEX Qty: 30 0RF Rx Instructions: take TWO 150 mg tablets of nirmatrelvir with ONE 100 mg tablet of ritonavir twice daily for 5 days atorvastatin 20 mg tablet 20 mg HS metformin 1,000 mg tablet 1,000 mg BID lisinopril 10 mg tablet 10 mg DAILY hydroxyzine HCl 25 mg tablet 25 mg BID paroxetine HCl 40 mg tablet 40 mg PO HS bupropion HCl 150 mg tablet extended release 24 hr 150 mg PO DAILY quetiapine 50 mg tablet 50 mg HS norethindrone-e.estradiol-iron [Junel FE 1.5/30 (28)] 1.5 mg-30 mcg (21)/75 mg (7) tablet 1 tab DAILY hydrocodone-acetaminophen 5-325 mg tablet 1 tab PO Q8H MDD 3 daily PRN (Reason: pain) Qty: 7 0RF ciprofloxacin HCl [Cipro] 500 mg tablet 500 mg PO BID Qty: 20 0RF ciprofloxacin HCl 500 mg tablet 500 mg PO Q12H Qty: 20 0RF ciprofloxacin HCl [Cipro] 500 mg tablet 500 mg PO BID Qty: 20 0RF ondansetron 4 mg tablet,disintegrating 4 mg PO Q8H PRN (Reason: nausea and vomiting) Qty: 30 0RF Referrals: No Primary/Family,Physician [Primary Care Provider] - In 1 week Problem List Clinical Impression: Gallstones Patient/Caregiver Discharge Instructions Discharge Activity: activity as tolerated Education Materials: ED Gallstones with Biliary Colic Additional Instructions: Discharge Instructions from Dr. Flores: 1. After evaluation, your symptoms are due to gallstone(s).? You need gallbladder to help digest fatty foods. There is no stroke or brain tumor causing your headache. 2. So to prevent future attacks, avoid all fatty and oily and greasy and buttery and dairy foods.? This usually means take out and fast food restaurants. 3. Zofran for nausea/vomiting.? Tylenol with codeine for severe pain.? Clear liquid diet for 24 hours then advance diet slowly as tolerated. 4. See a private doctor on 12/01/2024 for recheck and further care. Ask to review all test results and official radiology reports, to make sure you receive all necessary follow-ups and monitoring. Ask for help seeing a general surgeon to discuss elective surgery. 5. Seek immediate medical care with intolerable pain, fever, or with any concerns. Instrucciones de blanca del Dr. Flores: 1. Despu?s de la evaluaci?n, aiden s?ntomas se deben a c?lculos biliares. Necesita la ves?cula biliar para digerir los alimentos grasos. No hay karla?n derrame cerebral ni tumor cerebral que est? causando cheng dolor de lilian. 2. Para prevenir futuros ataques, evite todos los alimentos grasosos, aceitosos, con mantequilla y l?cteos. [place] generalmente implica comida para llevar y restaurantes de comida r?pida. 3. Zofran para n?useas y v?mitos. Tylenol con code?na para el dolor intenso. Dieta l?quida junior 24 horas y luego aumente la dieta gradualmente seg?n la tolerancia. 4. Consulte con un m?dico privado el 02/28/2025 para florentino nueva revisi?n y atenci?n adicional. Solicite la revisi?n de todos los resultados de las pruebas y los informes radiol?gicos oficiales para asegurarse de recibir todos los seguimientos y la monitorizaci?n necesarios. Solicite ayuda para consultar con un cirujano general para hablar sobre florentino cirug?a electiva. 5. Busque atenci?n m?dica inmediata si presenta dolor insoportable, fiebre o cualquier inquietud. Print Language: Chinese Stand Alone Forms: [facility] Award Info., Patient Portal Info Letter
--- NOTE | 2024-11-30 02:10 | XR_ITS ---
Examination: CT chest, without intravenous contrast. CT abdomen, without intravenous contrast. CT pelvis, without intravenous contrast. 2-D sagittal and coronal reconstructions. 3-D reconstructions. Date and time of exam:November 30, 2024 0433 hours INDICATIONS: Onset generalized chest and abdominal pain today CTDI vol (mgy) 13.4 DLP (MGycm)903 Technique: Multiple CT images, 3.0 mm slice thickness, obtained chest, abdomen, pelvis, with the high-resolution 64 slice scanner.. Sagittal and coronal 2-D reconstructions are obtained. 3-D reconstructions Low dose protocols were performed. One or more of the following dose reduction techniques were used; automated exposure control, adjustment of the mA and/or KV according to patient size, use of iterative reconstruction technique. Findings: No thoracic aortic aneurysm dilatation Pulmonary artery segments are not enlarged. No pathologic mediastinal lymphadenopathy. No pneumonia or pulmonary edema or pleural disease. No focal liver or splenic lesions Cholelithiasis No pancreatic or adrenal mass. No renal or ureteral calculi, no hydronephrosis Normal appendix Diffuse colonic diverticulosis, no diverticulitis No pelvic mass Urinary bladder is intact Moderate osteopenia IMPRESSION: No acute process in the chest abdomen or pelvis Cholelithiasis, negative for cholecystitis
--- NOTE | 2024-11-30 02:10 | XR_ITS ---
Examination: CT brain head without contrast. 2-D sagittal coronal reconstructions Date and time of exam:November 28, 2024 at 0431 hours INDICATIONS: Headaches altered mental status today CTDI: vol (mGy):43 DLP: (mGycm):818 Technique: Multiple CT axial sections of the brain have been obtained, 5 mm slice thickness. Contrast has not been administered. 2-D sagittal, coronal reconstructions have been obtained Low dose protocols were performed. One or more of the following dose reduction techniques were used; automated exposure control, adjustment of the mA and/or KV according to patient size, use of iterative reconstruction technique. Findings: No significant ventricular enlargement. Intra-axial or extra-axial hemorrhage density is not seen. No mass effect or midline shift Basal cisterns are not remarkable. Fourth ventricle is midline. Cranial vault intact. Impression: Negative for acute hemorrhage, mass effect or midline shift
[2024-11-30 02:48] VITALS: BP 110/77; RESP 18; O2SAT 98
[2024-11-30] MEDS: SODIUM CHLORIDE 0.9% 1000 ML 1,000 ML 999 ML IV (02:51)
[2024-11-30] MEDS: ONDANSETRON INJ 2 MG/ML INJ 2 ML 4 MG IVP (02:52)
[2024-11-30 02:53] VITALS: TEMP 37
[2024-11-30] MEDS: KETOROLAC INJ 30 MG/ML VIAL IVP (02:53)
[2024-11-30] MEDS: MORPHINE SULF INJ 10 MG/ML VIAL 4 MG IVP (02:54)
[2024-11-30 02:56] VITALS: BP 110/77; PULSE 76; RESP 14; TEMP 37; O2SAT 99
[2024-11-30 02:56] LABS: Basophils # (Auto) 0.1 Thou/mm3 (0.0-0.2); Basophils % (Auto) 1 % (0-2.5); Eosinophils # (Auto) 0.8 Thou/mm3 (0.0-0.5); Eosinophils % (Auto) 7 % (0-10); Hematocrit 39.2 % (36.0-46.0); Hemoglobin 13.4 g/dL (12.0-16.0); Immature Granulocytes % (Auto) 0 % (0-0); Immature Granulocytes Auto 0.04 Thou/mm3 (0.00-0.00); Lymphocytes # (Auto) 3.9 Thou/mm3 (1.0-4.8); Lymphocytes % (Auto) 34 % (10-50); Mean Corpuscular HGB Conc 34.2 g/dl (31.0-37.0); Mean Corpuscular Hemoglobin 31.2 pg (25.0-35.0); Mean Corpuscular Volume 91 fL (80-100); Monocytes # (Auto) 0.6 Thou/mm3 (0.0-0.8); Monocytes % (Auto) 5 % (0-12); Neutrophils % (Auto) 52 % (37-80); Nucleated Red Blood Cell % 0 /100 WBC (0); Platelet Count 264 Thou/mm3 (140-440); RDW Standard Deviation 43.6 fL (36.4-46.3); Red Blood Count 4.29 Miln/mm3 (4.00-5.20); White Blood Count 11.4 Thou/mm3 (3.6-11.0)
[2024-11-30 03:14] LABS: HCG,Qualitative Serum Negative
[2024-11-30 03:19] LABS: Alanine Aminotransferase 21 U/L (10-49); Albumin, Serum 4.6 gm/dL (3.5-5.0); Albumin/Globulin Ratio 1.8 (1.2-2.2); Alkaline Phosphatase 128 U/L (46-116); Amylase 48 U/L (30-118); Anion Gap 10 (7-16); BUN/Creatinine Ratio 13 Ratio (12-20); Bilirubin,Direct 0.1 mg/dL (0.0-0.3); Bilirubin,Total 0.5 mg/dL (0.3-1.2); Blood Urea Nitrogen 12 mg/dL (9-23); Calcium 9.8 mg/dL (8.3-10.6); Calcium (Corrected) 9.8 mg/dL (8.5-10.1); Carbon Dioxide 25.6 mMol/L (20.0-31.0); Chloride 106 mMol/L (98-107); Creatinine (Component) 0.9 mg/dL (0.6-1.3); Free T4 (Free Thyroxine) 1.04 ng/dL (0.89-1.76); Globulin 2.5 gm/dL (2.3-3.5); Glucose 141 mg/dL (74-106); Lipase 28 U/L (12-53); Magnesium 2.2 mg/dL (1.6-2.6); Osmolality,Calculated 284 (275-295); Potassium 4.3 mMol/L (3.4-5.1); Sodium 142 mMol/L (136-145); Thyroid Stimulating Hormone 2.11 uIU/mL (0.55-4.78); Total Protein 7.1 gm/dL (5.7-8.2); eGFR > 60 See Note
[2024-11-30 03:57] LABS: Collection Type, Urine Clean Catch
[2024-11-30 04:02] LABS: HCG Qualitative,Urine Negative
[2024-11-30 04:03] LABS: Bacteria,Urine Rare; Bilirubin,Urine Negative (Negative); Blood,Urine Negative (Negative); Calcium Oxalate Crystals,Urine 3+; Clarity,Urine Clear (Clear/Hazy); Color,Urine Lt-Yellow (Lt Yel-Yel); Culture Indicated,Urine Not Indicated; Glucose, Urine Negative (Negative); Ketones,Urine Negative (Negative); Leukocyte Esterase,Urine Negative (Negative); Nitrite,Urine Negative (Negative); PH,Urine 6.5 (5.0-7.0); Protein,Urine Negative (Neg - Trace); RBC,Urine 3 /hpf (0-3); Specific Gravity,Urine 1.028 (1.001-1.035); Squamous Epithelial Cell,Urine 4 /hpf (0-5); Urobilinogen,Urine Negative mg/dL (0.0-1.0); WBC,Urine 1 /hpf (0-5)
[2024-11-30 04:30] VITALS: BP 109/74; PULSE 56; RESP 16; TEMP 36.8; O2SAT 98
--- NOTE | 2024-11-30 05:18 | PRELIM_ITS ---
CT scan of the head without intravenous contrast (axial sections with sagittal and coronal reformats). November 30, 2024 0431 hours Clinical History: Severe headache Compared with the prior study dated February. Findings: No evidence of intracranial hemorrhage, mass effect or midline shift. The ventricles and CSF spaces are unremarkable. There are focal calcifications in right temporal and left parietal lobes,likely representing old calcified granulomas. The calvarium is unremarkable. The mastoid air cells and the visua lized paranasal sinuses are clear. Impression: No evidence of intracranial hemorrhage, mass effect or midline shift. Report Electronically Signed By: Velma Brown 11/30/2024 5:17:56 AM [EST]
--- NOTE | 2024-11-30 05:26 | PRELIM_ITS ---
CT scan of the chest, abdomen and pelvis without intravenous contrast (axial sections with sagittal and coronal reformats) November 30, 2024 0433 hours Clinical History: Chest/abdominal pain. Compared with the prior study dated November. Findings: Bibasilar atelectasis is seen. There is no pleural effusion or pneumothorax. The aorta is unremarkable on this noncontrast study. No evidence of mediastinal mass or lymphadenopathy. There is no pericardial effusion. There is a calcified gallbladder calculus, measuring 7 mm without evidence of gallbladder wall thickening or pericholecystic fluid. A hypodense lesion is noted in the left kidney, too small to characterize. The liver, spleen, pancreas, adrenals and right kidney are unremarkable on this noncontrast study. No evidence of bowel obstruction. There are multiple colonic diverticula without evidence of diverticulitis. The appendix is within normal limits (coronal images 62-80/148). The urinary bladder is unremarkable. The uterus and adnexa are unremarkable. There is no free fluid or free air. The osseous structures are unremarkable. Impression: No evidence of acute intrathoracic, intraabdominal or pelvic pathology on this noncontrast study. Cholelithiasis without evidence of acute cholecystitis. Other findings as described above. Report Electronically Signed By: Velma Brown 11/30/2024 5:26:23 AM [EST]
[2024-11-30 05:28] VITALS: BP 109/66; O2SAT 98
== END 2024-11-30 05:48 | disposition home or self-care (01) ==
PROVIDERS: Emergency Provider Emergency Medicine
DX: K80.20 Calculus of gallbladder without cholecystitis without obstruction (principal); R51.9 Headache, unspecified; R41.82 Altered mental status, unspecified; R07.89 Other chest pain
CPT/HCPCS: 36415; 70450; 71250; 74176; 80053; 81001; 81025; 82150; 82248; 83690; 83735; 84439; 84443; 84703; 85025; 87400; 87811; 96361; 96374; 96375; 99284; J1885; J2270; J2405; J7030

== ENCOUNTER 2025-01-30 08:16 | Emergency (ER) | payer MEDICAID, SELFPAY ==
[2025-01-30 08:26] VITALS: BP 113/73; PULSE 81; RESP 17; TEMP 37.1; O2SAT 98; BMI 32.1
--- NOTE | 2025-01-30 08:51 | EDNOTE_ITS ---
<Statement entered by Sherlyn Ahn MD - 01/30/25 15:16> As co-signing physician, I was present and available for consult prn. I concur with the plan and care as documented by the midlevel provider. ED Weakness RME/HPI General Chief complaint: Weakness Stated complaint: MEIER, lower back pain, weak X 2 days Time Seen by Provider: 01/30/25 08:23 Source: patient Arrival date/time: 01/30/25 08:16 49-year-old female with no known medical history presents to the emergency room with a chief complaint of a headache back pain and weakness x 2 days Mode of arrival: ambulatory Limitations: no limitations Related Data Home Medications ?Medication ?Instructions ?Recorded ?Confirmed quetiapine 50 mg tablet 50 mg PO HS 02/14/21 2 atorvastatin 10 mg tablet 10 mg PO QDAY 10/06/2104/18 metformin 500 mg tablet 500 mg PO QDAY 10/06/2103/26 atorvastatin 20 mg tablet 20 mg HS 06/21/23 06/21/23 bupropion HCl 150 mg 24 hr tablet, 150 mg PO DAILY 06/21/23 extended release hydroxyzine HCl 25 mg tablet 25 mg BID 06/21/23 lisinopril 10 mg tablet 10 mg DAILY 06/21/23 3 metformin 1,000 mg tablet 1,000 mg BID 06/21/23 norethindrone 1.5 mg-ethinyl 1 tab DAILY 06/21/2305/26 estradiol 30 mcg()/iron 75 mg() tablet (Junel FE 1.5/30 ()) paroxetine HCl 40 mg tablet 40 mg PO HS 06/21/2306/21 quetiapine 50 mg tablet 50 mg HS 06/21/23 06/21/23 Previous Rx's ?Medication ?Instructions ?Recorded nirmatrelvir 300 mg (150 mg See Rx Instructions PO .CO MPLEX 07/22/22 x2)-ritonavir 100 mg tablet,dose #30 tabs pack (Paxlovid) hydrocodone 5 mg-acetaminophen 325 1 tab PO Q8H PRN pa in #7 tabs 06/21/23 mg tablet ciprofloxacin HCl 500 mg tablet 500 mg PO BID #20 tabs 01/25/24 (Cipro) ciprofloxacin HCl 500 mg tablet 500 mg PO Q12H #20 tab s 04/28/24 ciprofloxacin HCl 500 mg tablet 500 mg PO BID #20 tabs 04/29/24 (Cipro) ondansetron 4 mg disintegrating 4 mg PO Q8H PRN nausea and 05/03/24 tablet vomiting #30 tabs acetaminophen 300 mg-codeine 30 mg 2 tab PO Q8H PRN pa in #20 tabs 11/30/24 tablet acetaminophen 325 mg capsule 650 mg (2 x 325 mg) PO QI D PRN 01/30/25 fever or pain 7 days #30 caps Allergies Allergy/AdvReac Type Severity Reaction Status Date / Time No Known Allergies Allergy Verified 01/30/25 08:21 Review of Systems Review of Systems Systems Reviewed: All systems reviewed, normal except as documented Constitutional Constitutional: Reports system reviewed and no additional complaints, except as documented, Denies fatigue, Denies fever(s), Reports headache(s) and Reports weakness Eyes Eyes: Reports system reviewed and no additional complaints, except as documented, Denies blurry vision and Denies change in vision ENT Ears, Nose, Mouth, and Throat: Reports system reviewed and no additional complaints, except as documented, Denies otalgia, Reports headache(s), Denies nasal congestion, Denies throat swelling and Denies vertigo Cardiovascular Cardiovascular: Reports system reviewed and no additional complaints, except as documented, Denies chest pain, Denies dyspnea and Denies dyspnea on exertion Respiratory Respiratory: Reports system reviewed and no additional complaints, except as documented, Denies chest congestion, Denies cough, Denies dyspnea, Denies dyspnea on exertion and Denies wheezing Gastrointestinal Gastrointestinal: Reports system reviewed and no additional complaints, except as documented, Denies abdominal pain, Denies cramping, Denies nausea and Denies vomiting Genitourinary Genitourinary: Reports system reviewed and no additional complaints, except as documented Musculoskeletal Musculoskeletal: Reports system reviewed and no additional complaints, except as documented and Denies back pain Integumentary/Breasts Skin/Breast: Reports system reviewed and no additional complaints, except as documented and Denies wounds Neurologic Neurologic: Reports system reviewed and no additional complaints, except as documented, Denies confusion, Reports headache(s), Denies lack of coordination, Denies vertigo and Reports weakness Psychiatric Psychiatric: Reports system reviewed and no additional complaints, except as documented, Denies anxiety, Denies confusion, Denies depression, Denies paranoia, Denies suicidal ideation and Denies tactile hallucinations Endocrine Endocrine: Reports system reviewed and no additional complaints, except as documented and Denies fatigue Hematologic/Lymphatic Hematologic/Lymphatic: Reports system reviewed and no additional complaints, except as documented and Denies lymphadenopathy Allergic/Immunologic Allergic/Immunologic: Reports system reviewed and no additional complaints, except as documented, Denies throat swelling, Denies urticaria and Denies wheezing Past Medical History Past Medical History NEUROLOGIC: Negative Alzheimer's Disease or Seizures CARDIAC: Positive Cardiac Disorders, Hypercholesterolemia and Hypertension; Negative Congestive Heart Failure RESPIRATORY: Negative Chronic Obstructive Pulmonary Disease (COPD) or Asthma GASTROINTESTINAL: Positive Gall Bladder Disease; Negative Hepatitis GENITOURINARY: Positive Kidney Stones; Negative Renal Disease MUSCULOSKELETAL: Positive Musculoskeletal Disorders and Arthritis ENT: Positive Cataracts ENDOCRINE: Positive Diabetes Mellitus Type 2; Negative Diabetes Mellitus Type 1 HEMATOLOGIC: Negative Sickle Cell Disease PSYCHO/SOCIAL: Positive Depression and Anxiety OTHER HISTORY: Negative Falls or Cancer Surgical History SURGICAL: Positive Tubal Ligation and Section Social History SMOKING STATUS: Never smoker SUBSTANCE USE: does not use ED Exam General Limitations: Present no limitations General appearance: Present alert and in no apparent distress Head Head exam: Present atraumatic Eye Eye exam: Present normal appearance, PERRL and EOMI ENT ENT exam: Present normal exam, normal oropharynx and mucous membranes moist Neck Neck exam: Present normal inspection, full ROM and trachea midline Chest Chest inspection: Present normal inspection and symmetric chest wall rise Respiratory Respiratory exam: Present normal lung sounds bilaterally; Absent respiratory distress, wheezes, stridor, accessory muscle use or prolonged expiratory phase Cardiovascular Cardiovascular exam: Present regular rate, normal rhythm and normal heart sounds Abdominal Exam Abdominal exam: Present soft and normal bowel sounds; Absent tenderness Extremities Exam Extremities exam: Present normal inspection and full ROM Back Exam Back exam: Present normal inspection and full ROM; Absent tenderness Neurological Exam Neurological exam: Present alert, oriented X3 and CN II-XII intact Psychiatric Psychiatric exam: Present normal affect and normal mood Skin Skin exam: Present warm, dry, intact and normal color Course Quality Measures none Orders Category Date Time Status Bedside COVID-19 Antigen Test NOW Care 01/30/25 08:31 Active Bedside Influenza A&B Antigen Test NOW Care 01/30/25 08:31 Completed Acetaminophen Tab [Tylenol ES Tab] Med 01/30/25 08:31 Discontinued 1,000 mg PO X1 ONE Vital Signs Vital signs: Vital Signs Temperature 98.8 F 01/30/25 08:26 Pulse Rate 81 01/30/25 08:26 Respiratory Rate 17 01/30/25 08:26 Blood Pressure 113/73 01/30/25 08:26 Pulse Oximetry (%) 98 01/30/25 08:26 Oxygen Delivery Method Room Air 01/30/25 08:26 Weakness MDM Narrative MDM Narrative:: 49-year-old female with no known medical history presents to the emergency room with a chief complaint of a headache back pain and weakness x 2 days Patient is hemodynamically stable and in no apparent distress. Patient complains of a headache back pain and generalized weakness x 2 days. Patient denies any trauma or injury. Patient is a GCS of 15 alert and oriented x 3 COVID-19 and influenza test were completed and the patient tested positive for COVID-19 Patient was discharged and educated to follow-up with primary care provider in the next 24 to 48 hours and return to the emergency room for any evidence of worsening signs or symptoms Patient data External records reviewed:: [facility] previous records Clinical information provided by:: patient Social determinants that could affect healthcare access:: none Patient has the following chronic illnesses:: Hypertension, hyperlipidemia, type 2 diabetes How is presenting disease/condition affected by chronic disease/condition?: no chronic disease Evaluation data The following diagnostics were reviewed and interpreted by me:: lab results and radiology exam(s) Lab and/or radiology exams considered but not ordered:: Labs and radiology exams considered in order Interpretation Summary: N/A Medications / Prescriptions Medications or Prescriptions considered but not ordered:: No medication given Medication administrations:: Medication Administration History Discontinued Medications Acetaminophen (Acetaminophen 500 Mg Tablet) 1,000 mg PO X1 ONE Stop: 01/30/25 08:32 Last Admin: 01/30/25 09:00 Dose: 1,000 mg Documented By: DB No medication given Consultations Consultation(s) initiated? (list below): No Diagnosis Weakness Differential Diagnosis: other (COVID-19/influenza/upper respiratory infection) Most likely diagnosis given after review of the tests above:: COVID-19 Admission Indicated Admission indicated?: not indicated Admission Request Was there a request for admission?: No Disposition Plan Disposition Plan: Discharge Discharge Attestation Discharge Attestation: The patient and all family members were given an opportunity to ask questions and understood the discharge instructions. Discharge instructions specifically effects, indications for sooner follow up or return to the emergency department, and the expected course of current diagnosis. Patient condition: Stable Discharge Plan Plan Patient Disposition: HOME (Self Care) Discharge Disposition comment: Stable Prescriptions/Referrals Prescriptions/Med Rec: New acetaminophen 325 mg capsule 650 mg PO QID PRN (Reason: fever or pain) 7 Days Qty: 30 0RF No Action quetiapine 50 mg Tablet 50 mg PO HS metformin 500 mg tablet 500 mg PO QDAY atorvastatin 10 mg tablet 10 mg PO QDAY Paxlovid 300 mg (150 mg x 2)-100 mg tablets,dose pack See Rx Instructions .ROUTE .COMPLEX Qty: 30 0RF Rx Instructions: take TWO 150 mg tablets of nirmatrelvir with ONE 100 mg tablet of ritonavir twice daily for 5 days atorvastatin 20 mg tablet 20 mg HS metformin 1,000 mg tablet 1,000 mg BID lisinopril 10 mg tablet 10 mg DAILY hydroxyzine HCl 25 mg tablet 25 mg BID paroxetine HCl 40 mg tablet 40 mg PO HS bupropion HCl 150 mg tablet extended release 24 hr 150 mg PO DAILY quetiapine 50 mg tablet 50 mg HS norethindrone-e.estradiol-iron [Junel FE 1.5/30 (28)] 1.5 mg-30 mcg (21)/75 mg (7) tablet 1 tab DAILY hydrocodone-acetaminophen 5-325 mg tablet 1 tab PO Q8H MDD 3 daily PRN (Reason: pain) Qty: 7 0RF ciprofloxacin HCl [Cipro] 500 mg tablet 500 mg PO BID Qty: 20 0RF ciprofloxacin HCl 500 mg tablet 500 mg PO Q12H Qty: 20 0RF ciprofloxacin HCl [Cipro] 500 mg tablet 500 mg PO BID Qty: 20 0RF ondansetron 4 mg tablet,disintegrating 4 mg PO Q8H PRN (Reason: nausea and vomiting) Qty: 30 0RF acetaminophen-codeine 300-30 mg tablet 2 tab PO Q8H MDD 6 PRN (Reason: pain) Qty: 20 0RF Problem List Clinical Impression: COVID Patient/Caregiver Discharge Instructions Education Materials: 2018-nCoV Additional Instructions: Por favor, consulte con cheng m?dico de cabecera en las pr?ximas 24 a 48 horas. Manuel positivo en la prueba de COVID-19. El tratamiento es el control de los s?ntomas. Contin?e tomando Tylenol e ibuprofeno para controlar la fiebre. Aumente cheng ingesta de l?quidos por v?a oral. Ante cualquier signo de empeoramiento de los signos o s?ntomas, acuda de inmediato a urgencias. Print Language: Kiswahili Stand Alone Forms: [facility] Award Info., Work/School Release, Patient Portal Info Letter PA/RIG SITE ENGINEER Supervising Physician PA/RIG SITE ENGINEER Supervising Physician: Dr. AHN
[2025-01-30] MEDS: ACETAMINOPHEN 500 MG TABLET 1000 MG PO (09:00)
== END 2025-01-30 09:16 | disposition home or self-care (01) ==
LOC: SERX 09:12
PROVIDERS: Emergency Provider Nurse Practitioner Family; PCP Family Medicine
DX: U07.1 COVID-19 (principal)
CPT/HCPCS: 87400; 87811; 99282; A9270

== ENCOUNTER 2025-03-18 15:39 | Emergency (ER) | payer MEDICAID, SELFPAY ==
[2025-03-18 15:49] VITALS: BP 122/77; PULSE 86; RESP 18; TEMP 36.7; O2SAT 98
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
[2025-03-18] MEDS: KETOROLAC INJ 30 MG/ML VIAL IM (17:16)
== END 2025-03-18 17:41 | disposition home or self-care (01) ==
LOC: SERX 17:39
PROVIDERS: Emergency Provider Emergency Medicine; PCP Family Medicine
DX: S16.1XXA Strain of muscle, fascia and tendon at neck level, initial encounter (principal); V43.52XA Car driver injured in collision with other type car in traffic accident, initial encounter; Y92.410 Unspecified street and highway as the place of occurrence of the external cause
CPT/HCPCS: 72040; 96372; 99283; J1885